=== PATIENT | male | born 1995 | race Caucasian/White ===

== ENCOUNTER 2017-03-26 23:53 | Emergency (ER) | payer MEDICAID, OTHER ==
[~2017-03-26] VITALS: Ht 177.8 cm; Wt 90.5 kg
[~2017-03-26 23:53] MED LIST: ALBU8.5H3 INH; PRED50TA PO
[2017-03-26 23:56] VITALS: Ht 177.8 cm; Wt 90.5 kg
--- NOTE | 2017-03-27 00:57 | ERD ---
ER Documentation Chief Complaint Date/Time DATE: 03/27/17 TIME: 00:56 Chief Complaint hearing problem- both ears, difficulty of hearing HPI 21-year-old male presents here in emergency department for complaints of muffled hearing in both ears, feels both ears are clogged. Patient took over-the -counter cerumen impaction medication with no relief. Patient denies any ear pain. Patient denies any ear discharge. Patient denies any fever or chills. ROS All systems reviewed and are negative except as per history of present illness. Medications Home Meds Active Scripts Carbamide Peroxide* (Debrox*) 6.5% - 15 Ml Drops, 10 DROP BOTH EARS BID, #1 BOTTLE Prov:SANDRA PRESSLEY NP 03/27/17 Neomycin/Polymyxin/Hydrocort* (Cortisporin* Otic) 10 Ml Susp, 4 DROP BOTH EARS QID for 7 Days, EA Prov:SANDRA PRESSLEY NP 03/27/17 Prednisone* (Prednisone*) 50 Mg Tablet, 50 MG PO DAILY, #3 TAB Prov:SANDRA PRESSLEY NP 07/23/16 Albuterol Sulfate* (Proair HFA*) 8.5 Gm Hfa.aer.ad, 2 PUFF INH Q4H Y for WHEEZING AND SOB, #1 INHALER Prov:SANDRA PRESSLEY NP 07/23/16 Reported Medications Albuterol Sulfate* (Proair HFA*) Unknown Strength Hfa.aer.ad, INH Q4H Y for WHEEZING AND SOB, #1 INHALER 07/23/16 Allergies Allergies: Coded Allergies: No Known Allergy (Unverified , 12/14/15) PMhx/Soc History of Surgery: No Anesthesia Reaction: No Hx Neurological Disorder: No Hx Respiratory Disorders: Yes (ASTHMA ) Hx Cardiac Disorders: No Hx Psychiatric Problems: Yes (anxiety) Hx Miscellaneous Medical Probl: No Hx Alcohol Use: Yes Hx Substance Use: Yes (heroin) Hx Tobacco Use: Yes Smoking Status: Current every day smoker FmHx Family History: No coronary disease, No diabetes, No other Physical Exam Vitals Vital Signs Date Time Temp Pulse Resp B/P Pulse Ox O2 Delivery O2 Flow Rate FiO2 03/26/17 23:56 98.3 81 20 128/85 98 Physical Exam GENERAL: The patient is well developed and appropriate for usual state of health, in no apparent distress. HEENT: Atraumatic. Ears: Bilateral ear canal noted to be filled with cerumen. Normal tympanic membrane, no erythema or bulging. Nose: normal nasal turbinates , no erythema or swelling. Normal nasal discharge. Throat: oropharynx clear. No tonsillar swelling or tonsillar exudates. No lymphadenopathy. CHEST: Clear to auscultation bilaterally. There are no rales, wheezes or rhonchi. HEART: Regular rate and rhythm. No murmurs, clicks, rubs or gallops. No S3 or S4. ABDOMEN: Soft, nontender and nondistended. Good bowel sounds. No rebound or guarding. No gross peritonitis. No gross organomegaly or masses. No Morel sign or McBurney point tenderness. BACK: No midline or flank tenderness. EXTREMITIES: Equal pulses bilaterally. There is no peripheral clubbing, cyanosis or edema. No focal swelling or erythema. Full range of motion. Grossly neurovascularly intact. NEURO: Alert and oriented. Cranial nerves 2-12 intact. Motor strength in all 4 extremities with 5/5 strength. Sensation grossly intact. Normal speech and gait. SKIN: There is no apparent rash or petechia. The skin is warm and dry. HEMATOLOGIC AND LYMPHATIC: There is no evidence of excessive bruising or lymphedema. No gross cervical, axillary, or inguinal lymphadenopathy. Procedures/MDM Procedure note: After patient's verbal consent, the bilateral ear canal is lavage using diluted hydrogen peroxide with normal saline. After procedure, patient left ear was cleaned, no foreign body noted. Patient tolerated procedure well. No TM perforation noted. No cerumen impaction noted afterwards. Medical decision making: Patient's symptoms most likely is consistent with cerumen impaction, no TM perforation, new otitis media or otitis externa mastoiditis. No foreign body. Patient was given prescription for Corticosporin otic drops to prevent infection, is advised to avoid using Q-tips to clean the ear. Patient is advised to follow with primary care doctor in 2-3 days for reevaluation of symptoms. Patient was advised to return to emergency department for any worsening symptoms Departure Diagnosis: Primary Impression: Cerumen impaction Laterality: bilateral Qualified Code: H61.23 - Bilateral impacted cerumen Condition: Stable SANDRA PRESSLEY NP Mar 27, 2017 00:57
[2017-03-27] MEDS ORDERED: NPH10OT BOTH EARS (01:50)
[2017-03-27] MEDS ORDERED: CARB15DR48 BOTH EARS (01:50)
== END 2017-03-27 02:04 | disposition home or self-care (01) ==
LOC: FTE 23:53
DX: H61.23 Impacted cerumen, bilateral (principal); J45.909 Unspecified asthma, uncomplicated; F17.210 Nicotine dependence, cigarettes, uncomplicated
CPT/HCPCS: 69209; Z7502

== ENCOUNTER 2018-09-30 02:10 | Emergency (ER) | END 2018-09-30 03:09 | disposition home or self-care (01) ==

== ENCOUNTER 2018-10-01 02:42 | Emergency (ER) | END 2018-10-01 04:30 | disposition home or self-care (01) ==

== ENCOUNTER 2018-10-02 20:58 | Emergency (ER) | END 2018-10-02 23:47 | disposition home or self-care (01) ==

== ENCOUNTER 2018-10-04 09:13 | Emergency (ER) | END 2018-10-04 12:14 | disposition home or self-care (01) ==

== ENCOUNTER 2018-10-09 07:41 | Emergency (ER) | END 2018-10-09 10:51 | disposition home or self-care (01) ==

== ENCOUNTER 2018-10-13 17:55 | Emergency (ER) | payer OTHER ==
[~2018-10-13] VITALS: Ht 167.6 cm; Wt 80.4 kg
[~2018-10-13 17:55] MED LIST changes: +ACET325T33 PO; +ALBU18HF INHALATION; -ALBU8.5H3 INH; +ALBU8.5H8 INH; +CARB15DR50 BOTH EARS; +CYCL10TA7 PO; +FAMO-96 PO; +IBUP-1542 PO; +IBUP800T48 PO; +MOME13HF2 INHALATION; +NPH10OT BOTH EARS; +ONDA4TAB14 PO; +PHEN177S43 MT; +PRED20TA PO
[2018-10-13 18:07] VITALS: Ht 167.6 cm; Wt 80.4 kg
--- NOTE | 2018-10-13 21:14 | EN ---
Date/Time of Note Date/Time of Note DATE: 10/13/18 TIME: 21:13 ER Progress Note This is a 23-year-old male who was initially seen by Dr. Jaciel Lewis. Dr. Jaciel Lewis stated that if CT is negative patient will go home and be advised to follow-up with his primary care physician. CT of the abdomen and pelvis without contrast revealed no radiopaque foreign body seen. Small left inguinal hernia containing fat only. CT of the chest without contrast revealed no radiopaque foreign body seen. No acute abnormality seen. Please see above. Reevaluation: Denies headache, dizziness, blurry vision, neck pain, shoulder pain, chest pain, back pain, abdominal pain, nausea, vomiting. No episode of emesis in the emergency department. Alert and oriented 4. Speaks full and clear sentences. Respirations even and unlabored. Lung sounds clear to auscultation. Active bowel sounds. There is no right upper/right lower/epigastric/left upper/left lower abdominal tenderness and light and deep palpation. Negative on Rovsings sign. Negative Doyline sign. Able to jump 5 times without developing right-sided abdominal pain. No peritoneal signs. Ambulatory with steady gait. No neurovascular deficits. No neurological def icits. Will be discharged. Differential diagnosis: I have low suspicion for retained foreign body, acute abdomen, pneumothorax, hemothorax, sepsis. Final diagnosis: Abdominal pain. Follow-up with PCP in the next 24-48 hours. Come back here in the emergency department for any new symptoms or worsening symptoms. All questions and concerns are answered. Patient verbalized understanding and agreed with the plan of care. Hemodynamically stable on discharge. JOSH SPENCER Oct 13, 2018 21:14
[2018-10-13] MEDS ORDERED: ACET500C5 PO (21:16)
[2018-10-13 21:44] VITALS: BP 115/75; PULSE 75; RESP 18
--- NOTE | 2018-10-23 02:39 | ERD ---
ER Documentation Chief Complaint Chief Complaint Abdominal pain after smoking and stated he swallowed a piece of glass HPI 23-year-old male presents status post swallowing class. He states that he was smoking marijuana and the glass pipe broke, he may have swallowed it. He states he has a foreign body sensation in his esophagus and upper chest area. Denies fevers or chills. No nausea or vomiting noted. ROS All systems reviewed and are negative except as per history of present illness. Medications Home Meds Active Scripts Acetaminophen* (Tylophen*) 500 Mg Capsule, 1 CAP PO Q6H PRN for PAIN AND OR ELEVATED TEMP, #20 CAP Prov:JOSH SPENCER 10/13/18 Ibuprofen* (Motrin*) 600 Mg Tab, 600 MG PO Q6, #20 TAB Prov:ROSIE KAUR MD 10/09/18 Ondansetron (Ondansetron Odt) 4 Mg Tab.rapdis, 4 MG PO Q6H PRN for NAUSEA AND/OR VOMITING, #20 TAB Prov:MITA NELSON PA-C 10/04/18 Famotidine* (Pepcid*) 20 Mg Tablet, 20 MG PO DAILY for 4 Days, #20 TAB Prov:MITA NELSON PA-C 18 Acetaminophen* (Tylenol*) 325 Mg Tablet, 2 TAB PO Q6 PRN for PAIN AND OR ELEVATED TEMP, #30 TAB Prov:MITA NELSON PA-C 10/04/18 Ibuprofen* (Motrin*) 600 Mg Tab, 600 MG PO Q6, #30 TAB Prov:ROBERT TOM PA-C 10/02/18 Albuterol Sulfate* (Ventolin HFA*) 18 Gm Hfa.aer.ad, 2 PUFF INHALATION Q4H, #1 INHALER Prov:ROBERT TOM PA-C 10/02/18 Mometasone-Formoterol (Dulera) 100-5 Mcg - 13 Gm Hfa.aer.ad, 2 PUFFS INHALATION BID, #1 INHALER Prov:ROBERT TOM PA-C 10/02/18 Prednisone* (Prednisone*) 20 Mg Tab, 40 MG PO DAILY for 4 Days, TAB Prov:ROBERT TOM PA-C 10/02/18 Phenol* (Chloraseptic* Loranger) 177 Ml Loranger.pump, 2 SPRAY MT Q2H PRN for SORE THROAT, #1 BOTTLE Prov:ROBERT TOM PA-C 10/02/18 Albuterol Sulfate* (Ventolin HFA*) 18 Gm Hfa.aer.ad, 2 PUFF INHALATION Q4H, #1 INHALER Prov:ЮЛИЯ VILLANUEVA MD 10/01/18 Prednisone* (Prednisone*) 20 Mg Tab, 60 MG PO DAILY for 4 Days, TAB Prov:ЮЛИЯ VILLANUEVA MD 10/01/18 Ibuprofen* (Motrin*) 800 Mg Tab, 800 MG PO Q6, #30 TAB Prov:YESY CAMPO PA-C 09/30/18 Cyclobenzaprine Hcl* (Cyclobenzaprine Hcl*) 10 Mg Tablet, 10 MG PO TID, #15 TAB Prov:YESY CAMPO PA-C 09/30/18 Carbamide Peroxide* (Debrox*) 6.5% - 15 Ml Drops, 10 DROP BOTH EARS BID, #1 BOTTLE Prov:SANDRA PRESSLEY NP 03/27/17 Neomycin/Polymyxin/Hydrocort* (Cortisporin* Otic) 10 Ml Susp, 4 DROP BOTH EARS QID for 7 Days, EA Prov:SANDRA PRESSLEY NP 03/27/17 Prednisone* (Prednisone*) 50 Mg Tablet, 50 MG PO DAILY, #3 TAB Prov:SANDRA PRESSLEY NP 07/23/16 Albuterol Sulfate* (Proair HFA*) 8.5 Gm Hfa.aer.ad, 2 PUFF INH Q4H PRN for WHEEZING AND SOB, #1 INHALER Prov:SANDRA PRESSLEY [employer] 07/23/16 Reported Medications Albuterol Sulfate* (Proair HFA*) Unknown Strength Hfa.aer.ad, INH Q4H PRN for WHEEZING AND SOB, #1 INHALER 07/23/16 Allergies Allergies: Coded Allergies: No Known Allergy (Unverified , 12/14/15) PMhx/Soc Medical and Surgical Hx: pt denies Surgical Hx History of Surgery: No Anesthesia Reaction: No Hx Neurological Disorder: No Hx Respiratory Disorders: Yes (asthma ) Hx Cardiac Disorders: No Hx Psychiatric Problems: No Hx Miscellaneous Medical Probl: No Hx Alcohol Use: Yes (last night ) Hx Substance Use: Yes (earlier today ) Hx Tobacco Use: Yes Smoking Status: Current every day smoker Physical Exam Vitals Temperature 98.9, pulse 86, respiration 20, blood pressure 130/77, O2 saturation 99% on room air Physical Exam Const: No acute distress Resp: Clear to auscultation bilaterally Cardio: Regular rate and rhythm, no murmurs Abd: Soft, non tender, non distended. Normal bowel sounds Skin: No petechiae or rashes Back: No midline or flank tenderness Ext: No cyanosis, or edema Neur: Awake and alert Psych: Normal Mood and Affect Procedures/MDM Medical Decision Making: Differential diagnosis includes but not limited to swallowed foreign body, esophageal inflammation, esophageal infection, gastritis. Patient appeared well on physical examination, nontoxic appearing. Abdominal examination benign. Given history of swallowing glass a CT chest, abdomen, pelvis was ordered. Patient signed out to MARSHAL Madera who agreed to assume care of the patient. Disclaimer: Inadvertent spelling and grammatical errors are likely due to EHR/dictation software use and do not reflect on the overall quality of patient care. Also, please note that the electronic time recorded on this note does not necessarily reflect the actual time of the patient encounter. Departure Diagnosis: Primary Impression: Abdominal pain affecting Condition: Stable Patient Instructions: Abdominal Pain Referrals: DOCTOR,NOT ON STAFF (PCP) [facility] YOU HAVE RECEIVED A MEDICAL SCREENING EXAM AND THE RESULTS INDICATE THAT YOU DO NOT HAVE A CONDITION THAT REQUIRES URGENT TREATMENT IN THE EMERGENCY DEPARTMENT. FURTHER EVALUATION AND TREATMENT OF YOUR CONDITION CAN WAIT UNTIL YOU ARE SEEN IN YOUR DOCTORS OFFICE WITHIN THE NEXT 1-2 DAYS. IT IS YOUR RESPONSIBILITY TO MAKE AN APPOINTMENT FOR FOLOW-UP CARE. IF YOU HAVE A PRIMARY DOCTOR --you should call your primary doctor and schedule an appointment IF YOU DO NOT HAVE A PRIMARY DOCTOR YOU CAN CALL OUR PHYSICIAN REFERRAL HOTLINE AT IF YOU CAN NOT AFFORD TO SEE A PHYSICIAN YOU CAN CHOSE FROM THE FOLLOWING [facility] [address] [facility]. [facility] [address] [facility]. [facility] [address] [facility] [address] [facility] [address] [facility]. [facility]. [address] [facility]. [facility] YOU HAVE RECEIVED A MEDICAL SCREENING EXAM AND THE RESULTS INDICATE THAT YOU DO NOT HAVE A CONDITION THAT REQUIRES URGENT TREATMENT IN THE EMERGENCY DEPARTMENT. FURTHER EVALUATION AND TREATMENT OF YOUR CONDITION CAN WAIT UNTIL YOU ARE SEEN IN YOUR DOCTORS OFFICE WITHIN THE NEXT 1-2 DAYS. IT IS YOUR RESPONSIBILITY TO MAKE AN APPOINTMENT FOR FOLOW-UP CARE. IF YOU HAVE A PRIMARY DOCTOR --you should call your primary doctor and schedule and appointment IF YOU DO NOT HAVE A PRIMARY DOCTOR YOU CAN CALL OUR PHYSICIAN REFERRAL HOTLINE AT . IF YOU CAN NOT AFFORD TO SEE A PHYSICIAN YOU CAN CHOSE FROM THE FOLLOWING [facility] INSTITUTIONS: [facility] [address] [place] [address] [facility] [address] [place] [address] [facility] [address] [place] [address] Additional Instructions: Follow-up with PCP in the next 24-48 hours. Come back here in the emergency department for any new symptoms or any worsening symptoms. All questions and concerns were answered. JM JONES DO Oct 23, 2018 02:39
== END 2018-10-13 21:40 | disposition home or self-care (01) ==
LOC: FTE 17:55
DX: R10.9 Unspecified abdominal pain (principal); J45.909 Unspecified asthma, uncomplicated; F17.210 Nicotine dependence, cigarettes, uncomplicated
CPT/HCPCS: 71250; 74176; Z7502

== ENCOUNTER 2018-10-14 02:33 | Emergency (ER) | END 2018-10-14 03:56 | disposition left against medical advice (07) ==

== ENCOUNTER 2019-01-14 02:22 | Emergency (ER) | payer SELFPAY ==
[~2019-01-14] VITALS: Ht 172.7 cm; Wt 82.0 kg
[~2019-01-14 02:22] MED LIST changes: +ACET500C5 PO
[2019-01-14 02:36] VITALS: BP 126/74; PULSE 87; RESP 18; Ht 172.7 cm; Wt 82.0 kg
== END 2019-01-14 06:38 | disposition left against medical advice (07) ==
LOC: FTE 02:22
DX: Z53.21 Procedure and treatment not carried out due to patient leaving prior to being seen by health care provider (principal)